=== PATIENT | male | born 1950 | race Caucasian/White ===

== ENCOUNTER → 2016-10-19 | Outpatient (CLI) | payer OTHER ==
--- NOTE | 2016-10-19 11:59 | DIAGNOSTIC IMAGING REPORT ---
LEFT HAND MIN 3 VIEWS ROUTINE, RIGHT HAND MIN 3 VIEWS ROUTINE CLINICAL HISTORY: Rheumatoid arthritis. COMPARISON STUDY: None. FINDINGS: Mild deformity within the distal tuft of the left third finger is likely due to an old, healed fracture. No acute fracture or dislocation. Bone mineralization is intact. 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 There is also mild to moderate osteoarthritis within the second and third DIP joints and third PIP joint. This is demonstrated by cartilage space narrowing and marginal osteophytes. Mild soft tissue swelling within the right middle finger. There a few scattered tiny erosions within the hands. This is most pronounced at the metacarpal heads and interphalangeal joint of the thumbs. There are also a few small erosions at the DIP and PIP joints of the hands. Suspect small erosions within the bilateral triquetral and pisiform bones. IMPRESSION: Small scattered erosions seen within the bilateral hands and wrists as described above. Some of this could be due to the associated degenerative change. However, the overall pattern favors an inflammatory arthropathy. Electronically signed by: Nish Zavaleta M.D. 10/19/2016 11:57 AM Dictated Date/Time: 10/19/2016 11:52 AM
[2016-10-19 12:03] LABS: HEMATOCRIT 42.1 % (42-52); MEAN CELL VOLUME 95.2 fL (80-100); MEAN CORPUSCULAR HEMOGLOBIN 29.9 pg (25-34); MEAN CORPUSCULAR HGB CONC 31.4 g/dl (32-36); MEAN PLATELET VOLUME 9.2 fL (7.4-10.4); PLATELET COUNT 192 K/uL (130-400); RED BLOOD COUNT 4.42 M/uL (4.7-6.1); WHITE BLOOD COUNT 8.58 K/uL (4.8-10.8)
[2016-10-19 12:25] LABS: ALT/SGPT 27 U/L (12-78); CALCIUM 8.8 mg/dl (8.5-10.1)
[2016-10-19 12:28] LABS: ALKALINE PHOSPHATASE 56 U/L (45-117); AST/SGOT 26 U/L (15-37); RHEUMATOID FACTOR 38.7 U/mL (0-15)
[2016-10-19 12:57] LABS: BASO % 0.2 %; BASO ABS # 0.02 K/uL (0-0.2); COMPLETE YES; EOS % 0.8 %; IG% 1.4 %; LYMPH % 9.9 %; LYMPH ABS # 0.85 K/uL (1.2-3.4); MONO % 1.7 %
== END | disposition home or self-care (01) ==
LOC: C.LAB1850 11:05
PROVIDERS: ATTEND Internal Medicine Rheumatology
DX: M06.9 Rheumatoid arthritis, unspecified (principal); M35.3 Polymyalgia rheumatica; Z79.52 Long term (current) use of systemic steroids